=== PATIENT | male | born 1950 | race Caucasian/White ===

== ENCOUNTER 2017-06-15 14:09 | Emergency (ER) | payer OTHER, MEDICARE ==
[~2017-06-15] VITALS: Ht 188 cm; Wt 99.0 kg
[~2017-06-15 14:09] MED LIST: ACAR25TA2 PO; ASPI-529 PO; NIAC250C2 PO; OXYC-150 PO; ROTI1PAT10 TOP; SIMV40TA PO
[2017-06-15 14:47] LABS: COLOR,URINE Yellow (Yellow); GLUCOSE, URINE Negative (Neg); KETONES,URINE Negative (Neg); LEUKOCYTE ESTERASE ,URINE Small (Neg); NITRITES, URINE Negative (Neg); OCCULT BLOOD,URINE Moderate (Neg); PH,URINE 6.5 (4.8-8.0); PROTEIN,URINE Negative (Neg); UROBILINOGEN,URINE 0.2 E.U/dL (0.2-1.0)
[2017-06-15 14:48] LABS: UA COLLECTION TYPE VOIDED
[2017-06-15 14:49] LABS: CLARITY,URINE Cloudy (Clear)
[2017-06-15 14:56] LABS: BACTERIA,URINE FEW /HPF (Neg); MUCUS STRANDS FEW /LPF (Neg); SQUAMOUS EPITHELIAL CELL,UR FEW /LPF (FEW)
[2017-06-15 14:57] LABS: RBC,URINE 50-100 /HPF (0-2); WBC,URINE 0-4 /HPF (0-4)
[2017-06-15] MEDS ORDERED: NITR100C6 PO (15:18)
[2017-06-15 15:31] VITALS: BP 140/88
== END 2017-06-15 15:33 | disposition home or self-care (01) ==
LOC: ER 14:10
DX: R31.0 Gross hematuria (principal); E11.9 Type 2 diabetes mellitus without complications; G20 Parkinson's disease; Z98.890 Other specified postprocedural states; Z79.82 Long term (current) use of aspirin
CPT/HCPCS: 81001; 87088; 99284

== ENCOUNTER 2018-08-10 07:27 | Inpatient (IN) | payer OTHER, MEDICARE | END 2018-08-12 12:53 | disposition home or self-care (01) | LOC: PAS IN 07:27 → ORTHO 4S 14:30 | DX: M17.32 Unilateral post-traumatic osteoarthritis, left knee (principal) ==

== ENCOUNTER 2019-03-12 14:31 | Day surgery (SDC) | payer OTHER, MEDICARE ==
[2019-03-08 12:50] LABS: BASOPHILS % (AUTO) 0.5 % (0-1); EOSINOPHILS # (AUTO) 0.1 X10'3 (0-0.9); HEMATOCRIT 47.1 % (42.0-52.0); HEMOGLOBIN 15.9 g/dl (14.0-17.9); LYMPHOCYTES # (AUTO) 1.7 X10'3 (1.1-4.8); LYMPHOCYTES % (AUTO) 35.3 % (21-51); MEAN CORPUSCULAR HEMOGLOBIN 32.6 PG (27.0-31.0); MEAN CORPUSCULAR HGB CONC 33.7 g/dL (33.0-36.5); MEAN CORPUSCULAR VOLUME 96.7 FL (78-98); MEAN PLATELET VOLUME 7.3 FL (7.4-10.4); MONOCYTES # (AUTO) 0.4 X10'3 (0-0.9); MONOCYTES % (AUTO) 9.1 % (2-12); NEUTROPHILS # (AUTO) 2.5 X10'3 (1.8-7.7); NEUTROPHILS % (AUTO) 52.1 % (42-75); PLATELET COUNT 210 X10'3 (140-440); RED BLOOD COUNT 4.87 X10'6 (4.70-6.10); RED CELL DISTRIBUTION WIDTH 14.3 % (11.5-14.5); WHITE BLOOD COUNT 4.8 X10'3 (4.5-11.0)
[2019-03-08 12:58] LABS: ANION GAP 9 (8-16); BLOOD UREA NITROGEN 11 MG/DL (7-18); BUN/CREATININE RATIO 11.3 (5.4-32.0); CALCIUM 9.2 MG/DL (8.5-10.1); CHLORIDE 104 MMOL/L (99-107); CREATININE 0.97 MG/DL (0.60-1.10); GLUCOSE 115 MG/DL (70-104); POTASSIUM 3.7 MMOL/L (3.5-5.1); SODIUM 140 MMOL/L (135-145); TOTAL CARBON DIOXIDE 26.6 MMOL/L (24-32); eGFR 77 ML/MIN
[2019-03-08 13:00] LABS: PARTIAL THROMBOPLASTIN TIME 26 SECONDS (22-32)
[2019-03-12] VITALS (8 sets, daily range): BP systolic 129–137; BP diastolic 77–91
[~2019-03-12] VITALS: Ht 188 cm; Wt 106.1 kg
[~2019-03-12 14:31] MED LIST changes: -ASPI-529 PO; +CARB1TAB23 PO; +DIAZ5TAB4 PO; -OXYC-150 PO; +RASA1TAB4 PO; +TROS20TA4 PO
[2019-03-12] MEDS ORDERED: LORazepam 0.5 MG tablet PO PRN (15:20)
[2019-03-12] MEDS ORDERED: normal saline 1,000 ML IV SCH (15:20)
[2019-03-12] MEDS ORDERED: LIDOcaine/PRILOcaine 5gm cream TP ONE (15:20)
[2019-03-12] MEDS ORDERED: diphenhydrAMINE 25mg capsule PO PRN (15:20)
[2019-03-12] MEDS ORDERED: TURM1CAP PO (15:55)
[2019-03-12] MEDS ORDERED: ASPI-611 PO (15:55)
[2019-03-12] MEDS ORDERED: heparin 1,000unit/ml 10ml vial 10 ML ONE (16:26)
[2019-03-12] MEDS ORDERED: nitroGLYCERIN-Tridil 50MG/D5W 250 ML IV ONE (16:26)
[2019-03-12] MEDS ORDERED: fentaNYL/PF 50MCG/1 ML 2ML syringe ONE (16:26)
[2019-03-12] MEDS ORDERED: LIDOcaine 1% (10mg/ml)w/preservative injection 20ml MDV ONE (16:26)
[2019-03-12] MEDS ORDERED: verapamil 2.5 mg/ml inj IV ONE (16:26)
[2019-03-12] MEDS ORDERED: midazolam 2 mg/2 ml injection ONE (16:26)
[2019-03-12] MEDS ORDERED: iohexol 350MG/ML 100ml bottle IV ONE (16:27)
[2019-03-12] MEDS ORDERED: normal saline 1000ml 1,000 ML IV SCH (17:40)
[2019-03-12] MEDS ORDERED: ondansetron/PF 4mg/2ml inj IV PRN (17:40)
[2019-03-12] MEDS ORDERED: proCHLORperazine 10 MG/2 ml inj IV PRN (17:40)
[2019-03-12] MEDS ORDERED: OXAZEpam 15mg capsule PO PRN (17:40)
== END 2019-03-12 19:50 | disposition home or self-care (01) ==
LOC: SSTAY O 14:31
PROVIDERS: ATTEND Internal Medicine Interventional Cardiology
DX: R94.39 Abnormal result of other cardiovascular function study (principal); I25.10 Atherosclerotic heart disease of native coronary artery without angina pectoris; E11.9 Type 2 diabetes mellitus without complications; Z79.01 Long term (current) use of anticoagulants; Z96.652 Presence of left artificial knee joint; Z96.611 Presence of right artificial shoulder joint; Z90.5 Acquired absence of kidney; Z79.82 Long term (current) use of aspirin; Z79.899 Other long term (current) drug therapy
CPT/HCPCS: 36415; 80048; 82948; 85025; 85610; 85730; 93458; 99152; C1769; C1894; J1644; J2001; J2250; J3010; J7030; Q0163; Q9967; 93005; A4620; A5120; A6258; J3490

== ENCOUNTER 2019-03-26 13:24 | Inpatient (IN) | payer OTHER, MEDICARE ==
[~2019-03-26] VITALS: Ht 188 cm; Wt 106.0 kg
[2019-03-26] VITALS (15 sets, daily range): BP systolic 79–146; BP diastolic 48–90
[~2019-03-26 13:24] MED LIST changes: +ASPI-611 PO; +TURM1CAP PO
[2019-03-26] MEDS ORDERED: cefazolin/dext.iso 2gm/100ml 100 ML IV ONE ×2 (13:57→14:06)
[2019-03-26] MEDS ORDERED: famotidine 20mg tablet PO ONE (13:57)
[2019-03-26] MEDS ORDERED: ringers solution, lacted 1,000 ML IV SCH ×2 (13:57→17:36)
[2019-03-26] MEDS ORDERED: vancomycin inj 1,500 MG in normal saline 300ml IV soln IV ONE (13:58)
[2019-03-26] MEDS ORDERED: tranexamic acid inj. 1,100 MG in normal saline 100ml IV soln 100 ML IV ONE ×2 (14:30→15:30)
[2019-03-26] MEDS ORDERED: mupirocin 2% nasal ointment 1gm UD NS ONE (14:48)
[2019-03-26 15:01] LABS: BASOPHILS % (AUTO) 0.3 % (0-1); EOSINOPHILS # (AUTO) 0.1 X10'3 (0-0.9); LYMPHOCYTES # (AUTO) 1.5 X10'3 (1.1-4.8); LYMPHOCYTES % (AUTO) 27.1 % (21-51); MEAN CORPUSCULAR HEMOGLOBIN 32.9 PG (27.0-31.0); MEAN CORPUSCULAR HGB CONC 34.1 g/dL (33.0-36.5); MEAN CORPUSCULAR VOLUME 96.6 FL (78-98); MEAN PLATELET VOLUME 7.7 FL (7.4-10.4); MONOCYTES # (AUTO) 0.5 X10'3 (0-0.9); MONOCYTES % (AUTO) 9.3 % (2-12); NEUTROPHILS # (AUTO) 3.3 X10'3 (1.8-7.7); NEUTROPHILS % (AUTO) 61.3 % (42-75); PRE OP HEMATOCRIT 48.5 % (42.0-52.0); PRE OP HEMOGLOBIN 16.5 g/dL (14.0-17.9); PRE OP PLATELET COUNT 194 X10'3 (140-440); RED BLOOD COUNT 5.03 X10'6 (4.70-6.10); RED CELL DISTRIBUTION WIDTH 14.2 % (11.5-14.5)
[2019-03-26 15:13] LABS: ALBUMIN 4.4 G/DL (3.4-5.0); ALBUMIN/GLOBULIN RATIO 1.3 (1.1-1.5); ALKALINE PHOSPHATASE 107 IU/L (46-116); BLOOD UREA NITROGEN 16 MG/DL (7-18); BUN/CREATININE RATIO 17.2 (5.4-32.0); CALCIUM 9.7 MG/DL (8.5-10.1); CHLORIDE 102 MMOL/L (99-107); CREATININE 0.93 MG/DL (0.60-1.10); PRE OP ALT 25 U/L (30-65); PRE OP ANION GAP 9 (8-16); PRE OP AST 36 U/L (10-37); PRE OP BILIRUB, TOTAL 0.8 MG/DL (0.0-1.0); PRE OP GLUCOSE 87 MG/DL (70-104); PRE OP SODIUM 139 MMOL/L (135-145); TOTAL CARBON DIOXIDE 27.7 MMOL/L (24-32); TOTAL PROTEIN 7.9 G/DL (6.4-8.2); eGFR 81 ML/MIN
[2019-03-26 15:15] LABS: PRE OP POTASSIUM 4.1 MMOL/L (3.4-5.1)
[2019-03-26] MEDS ORDERED: tetracaine 1% (10mg/ml) pres. free inj. ONE (15:23)
[2019-03-26 15:24] LABS: HEMOGLOBIN A1C 5.7 % (4.5-6.2)
[2019-03-26] MEDS ORDERED: fentaNYL/PF 50MCG/1 ML 2ML syringe ONE (16:32)
[2019-03-26] MEDS ORDERED: MIDAZolam 1mg/ml 10ml vial ONE ×2 (16:32→18:12)
[2019-03-26] MEDS ORDERED: ketorolac trometh. 30mg/ml inj. ONE (17:11)
[2019-03-26] MEDS ORDERED: ROPIVAcaine 0.5% (5mg/ml) 30ml vial ONE ×2 (17:11→18:13)
[2019-03-26] MEDS ORDERED: propofol inj 20 ML IV ONE ×3 (17:11→19:35)
[2019-03-26] MEDS ORDERED: LIDOcaine 2% (20mg/ml) 5ml vial ONE (17:12)
[2019-03-26] MEDS ORDERED: hydrALAZINE 20mg/ml inj. IV PRN (17:40)
[2019-03-26] MEDS ORDERED: labetalol 20mg/4ml (5mg/ml) syringe IV PRN (17:40)
[2019-03-26] MEDS ORDERED: ondansetron/PF 4mg/2ml inj IV PRN ×3 (17:40→20:20)
[2019-03-26] MEDS ORDERED: fentaNYL/PF 50MCG/1 ML 2ML syringe IV PRN ×2 (17:40)
[2019-03-26] MEDS ORDERED: morphine 4 MG/ML inj SYRINge IV PRN ×2 (17:40)
[2019-03-26] MEDS ORDERED: diphenhydrAMINE 50 mg/ml inj IV PRN (18:00)
[2019-03-26 19:13] LABS: APPEARANCE,SYNOVIAL FLUID BLOODY; COLOR,SYNOVIAL FLUID RED; SYN RBC 110000 /CU MM (0); SYN WBC 94 /CU MM (0-200)
[2019-03-26 19:20] LABS: LYMPHOCYTES,SYNOVIAL FLUID 40 % (0-75); MONOCYTES,SYNOVIAL FLUID 32 % (0-0); NEUTROPHILS,SYNOVIAL FLUID 28 % (0-25)
[2019-03-26] MEDS ORDERED: labetalol 20mg/4ml (5mg/ml) syringe IV ONE (19:51)
[2019-03-26] MEDS ORDERED: diazepam 5mg tablet PO PRN (20:20)
[2019-03-26] MEDS ORDERED: magnesium hydroxide 30ml (MOM) UD suspension PO PRN (20:20)
[2019-03-26] MEDS ORDERED: oxyCODONE IR 5mg (immed. release) tablet PO PRN (20:20)
[2019-03-26] MEDS ORDERED: acetaminophen 325mg tablet PO PRN (20:20)
[2019-03-26] MEDS ORDERED: diphenhydrAMINE 25mg capsule PO PRN ×2 (20:20)
[2019-03-26] MEDS ORDERED: bisacodyl 10mg suppository rectal RC PRN (20:20)
[2019-03-26] MEDS ORDERED: HYDROmorphone inj. 0.5 MG/0.5 ML DISP.SYRIN IV PRN (20:20)
[2019-03-26] MEDS ORDERED: hydrALAZINE 20mg/ml inj. IV ONE (20:24)
--- NOTE | 2019-03-26 20:55 | NUR ---
ADMITTED TO PACU FROM OR ACCOMPANIED BY ANESTHESIA. INTIAL PHYSICAL ASSESSMENT DONE AND RECORDED. REPORT RECEIVED FROM ANESTHESIA.
[2019-03-26] MEDS: atorvastatin 20mg tablet PO SCH (21:00)
[2019-03-26] MEDS: sennosides 8.6mg tablet PO SCH (21:00)
[2019-03-26] MEDS ORDERED: niacin 500mg timed-release capsule PO SCH (21:00)
[2019-03-26] MEDS: ROPIVAcaine 0.2%/PF PUMP/bolus 550 ML ADDCANAL SCH (21:29)
--- NOTE | 2019-03-26 22:00 | NUR ---
PACU DISCHARGE CRITERIA MET, REPORT GIVEN TO FLOOR. DENIES PAIN OR DISCOMFORT, TRANSFERRED TO ROOM IN STABLE GOOD CONDITION.
[2019-03-26] MEDS ORDERED: tranexamic acid inj. 1,000 MG in normal saline 100ml IV soln 100 ML IV ONE (23:00)
[2019-03-26] MEDS: potassium cl 20mEq in 1/2 NS 1,000 ML IV SCH (23:15)
[2019-03-26] MEDS: ceFAZolin 1GM/D5W- ADD-VANTAGE 50 ML IV SCH (23:17)
[2019-03-27] VITALS (7 sets, daily range): BP systolic 79–117; BP diastolic 49–65
[2019-03-27] MEDS: acetaminophen 325mg tablet PO SCH ×4 (02:00→20:15)
--- NOTE | 2019-03-27 02:06 | NUR ---
PT IS VERY GROGGY AND ASLEEP, O2 2L/NC FOR CONTINUOUS PULSE OX, SATS 97%, BP 97/54, HR 66. NO PAIN AT THIS TIME. PT UNABLE TO STAY AWAKE TO PARTICIPATE IN PHYS ASSESS.
[2019-03-27] MEDS: potassium cl 20mEq in 1/2 NS 1,000 ML IV SCH ×3 (04:18→20:18)
[2019-03-27] MEDS: carbidoba-levodopa 25-100mg tablet PO SCH ×3 (05:56→17:43)
--- NOTE | 2019-03-27 06:05 | NUR ---
Patient in room ORTHO 4020. I have received report from SELINA SANCHEZ and had the opportunity to ask questions and assume patient care.
--- NOTE | 2019-03-27 06:17 | NUR ---
REPORT GIVEN TO LAURA HOLLIS.
[2019-03-27 06:20] LABS: BASOPHILS % (AUTO) 0.1 % (0-1); EOSINOPHILS # (AUTO) 0.1 X10'3 (0-0.9); EOSINOPHILS % (AUTO) 0.9 % (0-6); HEMATOCRIT 38.2 % (42.0-52.0); HEMOGLOBIN 13.1 g/dl (14.0-17.9); LYMPHOCYTES # (AUTO) 1.1 X10'3 (1.1-4.8); LYMPHOCYTES % (AUTO) 13.5 % (21-51); MEAN CORPUSCULAR HEMOGLOBIN 32.4 PG (27.0-31.0); MEAN CORPUSCULAR HGB CONC 34.2 g/dL (33.0-36.5); MEAN CORPUSCULAR VOLUME 94.6 FL (78-98); MEAN PLATELET VOLUME 7.4 FL (7.4-10.4); MONOCYTES # (AUTO) 0.6 X10'3 (0-0.9); MONOCYTES % (AUTO) 7.9 % (2-12); NEUTROPHILS # (AUTO) 6.1 X10'3 (1.8-7.7); NEUTROPHILS % (AUTO) 77.6 % (42-75); PLATELET COUNT 160 X10'3 (140-440); RED BLOOD COUNT 4.04 X10'6 (4.70-6.10); WHITE BLOOD COUNT 7.9 X10'3 (4.5-11.0)
[2019-03-27 06:50] LABS: ANION GAP 10 (8-16); CHLORIDE 103 MMOL/L (99-107); SODIUM 138 MMOL/L (135-145); TOTAL CARBON DIOXIDE 24.9 MMOL/L (24-32)
[2019-03-27] MEDS: aspirin 325mg tablet PO SCH (07:41)
[2019-03-27] MEDS: RASAGILINE MESYLATE PO SCH (07:41)
[2019-03-27] MEDS: ROTIGOTINE 6 MG TOP SCH (07:41)
[2019-03-27] MEDS: ceFAZolin 1GM/D5W- ADD-VANTAGE 50 ML IV SCH (07:42)
--- NOTE | 2019-03-27 07:55 | NUR ---
INCREASED ON-Q 2ML/HR
[2019-03-27] MEDS ORDERED: vancomycin/NS 1 GM ADD-VANTAGE 250 ML IV SCH (08:00)
[2019-03-27] MEDS ORDERED: aspirin 81mg tablet.DR PO SCH (08:00)
[2019-03-27] MEDS: acarbose 50mg tablet PO SCH ×3 (08:59→17:43)
[2019-03-27] MEDS ORDERED: NIAC100045 PO (09:11)
--- NOTE | 2019-03-27 11:17 | NUR ---
Student documentation: I have reviewed all interventions, assessments performed and [facility] Medication Administration: For this medication-pass time frame, all medication were reviewed, dispensed, administered and documented per hospital policy [facility] [place]
[2019-03-27] MEDS: TROSPIUM CHLORIDE PO SCH (15:30)
[2019-03-27] MEDS: oxyCODONE IR 5mg (immed. release) tablet PO PRN ×2 (16:52→20:26)
[2019-03-27] MEDS ORDERED: ceFAZolin 1GM/D5W- ADD-VANTAGE 50 ML IV ONE (18:00)
--- NOTE | 2019-03-27 18:05 | NUR ---
Problems reprioritized. Patient report given, questions answered & plan of care reviewed with SELINA SANCHEZ.
--- NOTE | 2019-03-27 18:16 | NUR ---
ON Q TO 14ML/HR
--- NOTE | 2019-03-27 18:32 | NUR ---
REPORT REC'D FROM LAURA HOLLIS.
[2019-03-27] MEDS: ROPIVAcaine 0.2%/PF PUMP/bolus 550 ML ADDCANAL SCH (20:12)
[2019-03-27] MEDS: ROPIVAcaine 0.2% (10 MG/5 ML) BOLUS INJECTION ADDCANAL PRN (20:13)
[2019-03-27] MEDS: sennosides 8.6mg tablet PO SCH (20:14)
[2019-03-27] MEDS: atorvastatin 20mg tablet PO SCH (20:15)
[2019-03-27] MEDS: niacin 500mg ER (Niaspan) tablet PO SCH (20:18)
[2019-03-27] MEDS: HYDROmorphone 1 mg/ml syringe IV PRN (22:11)
[2019-03-28] MEDS: oxyCODONE IR 5mg (immed. release) tablet PO PRN ×4 (02:05→15:11)
[2019-03-28] MEDS: acetaminophen 325mg tablet PO SCH ×4 (02:05→20:08)
[2019-03-28] MEDS: ROPIVAcaine 0.2% (10 MG/5 ML) BOLUS INJECTION ADDCANAL PRN ×2 (02:09→07:15)
--- NOTE | 2019-03-28 02:10 | NUR ---
pt is using his self administer On-Que pump [id number] per education. New OnQue "ball" is ordered. will monitor for need to replace.
[2019-03-28] MEDS: potassium cl 20mEq in 1/2 NS 1,000 ML IV SCH (04:18)
[2019-03-28] MEDS: carbidoba-levodopa 25-100mg tablet PO SCH ×3 (05:29→17:48)
--- NOTE | 2019-03-28 06:10 | NUR ---
Patient in room ORTHO 4020. I have received report from SELINA SANCHEZ and had the opportunity to ask questions and assume patient care.
--- NOTE | 2019-03-28 06:16 | NUR ---
REPORT GIVEN TO LAURA HOLLIS.
[2019-03-28 06:53] LABS: BASOPHILS % (AUTO) 0.2 % (0-1); EOSINOPHILS # (AUTO) 0.1 X10'3 (0-0.9); EOSINOPHILS % (AUTO) 1.5 % (0-6); HEMATOCRIT 35.3 % (42.0-52.0); HEMOGLOBIN 12.1 g/dl (14.0-17.9); LYMPHOCYTES # (AUTO) 1.2 X10'3 (1.1-4.8); LYMPHOCYTES % (AUTO) 16.7 % (21-51); MEAN CORPUSCULAR HEMOGLOBIN 32.8 PG (27.0-31.0); MEAN CORPUSCULAR HGB CONC 34.3 g/dL (33.0-36.5); MEAN CORPUSCULAR VOLUME 95.6 FL (78-98); MEAN PLATELET VOLUME 7.6 FL (7.4-10.4); MONOCYTES # (AUTO) 0.7 X10'3 (0-0.9); MONOCYTES % (AUTO) 10.1 % (2-12); NEUTROPHILS # (AUTO) 5.1 X10'3 (1.8-7.7); NEUTROPHILS % (AUTO) 71.5 % (42-75); PLATELET COUNT 140 X10'3 (140-440); RED CELL DISTRIBUTION WIDTH 13.8 % (11.5-14.5); WHITE BLOOD COUNT 7.1 X10'3 (4.5-11.0)
[2019-03-28] MEDS: RASAGILINE MESYLATE PO SCH (07:16)
[2019-03-28] MEDS: acarbose 50mg tablet PO SCH ×3 (07:17→17:48)
[2019-03-28] MEDS: ROTIGOTINE 6 MG TOP SCH (07:19)
[2019-03-28] MEDS: aspirin 325mg tablet PO SCH (07:19)
[2019-03-28] MEDS ORDERED: niacin 500mg timed-release capsule PO SCH (08:00)
[2019-03-28 10:00] VITALS: BP 100/69
[2019-03-28] MEDS ORDERED: ASPI-1 PO (12:18)
[2019-03-28] MEDS ORDERED: cpm (12:18)
[2019-03-28] MEDS: TROSPIUM CHLORIDE PO SCH (15:10)
[2019-03-28] MEDS: HYDROmorphone 1 mg/ml syringe IV PRN (17:01)
--- NOTE | 2019-03-28 18:00 | NUR ---
Student documentation: I have reviewed and agree with all interventions, assessments performed and documented by TAMERA HERNANDEZ. Student Medication Administration: For this medication-pass time frame, all medication were reviewed, dispensed, administered and documented per hospital policy by TAMERA HERNANDEZ.
--- NOTE | 2019-03-28 18:37 | NUR ---
REPORT GIVEN TO LAURA MACIAS
--- NOTE | 2019-03-28 18:40 | NUR ---
Patient in room ORTHO 4020. I have received report from TELMA SANCHEZ and had the opportunity to ask questions and assume patient care.
[2019-03-28 19:00] VITALS: BP 130/73
[2019-03-28] MEDS: atorvastatin 20mg tablet PO SCH (20:09)
[2019-03-28] MEDS: niacin 500mg ER (Niaspan) tablet PO SCH (20:09)
[2019-03-28] MEDS: sennosides 8.6mg tablet PO SCH (20:09)
[2019-03-28] MEDS ORDERED: acetaminophen 325mg tablet PO PRN (20:20)
[2019-03-28 23:00] VITALS: BP 108/59
[2019-03-29] MEDS: carbidoba-levodopa 25-100mg tablet PO SCH ×3 (05:33→12:12)
[2019-03-29] MEDS: ROPIVAcaine 0.2% (10 MG/5 ML) BOLUS INJECTION ADDCANAL PRN (05:37)
[2019-03-29] MEDS: oxyCODONE IR 5mg (immed. release) tablet PO PRN ×3 (05:58→14:07)
[2019-03-29 06:09] LABS: BASOPHILS % (AUTO) 0.2 % (0-1); EOSINOPHILS # (AUTO) 0.1 X10'3 (0-0.9); EOSINOPHILS % (AUTO) 1.3 % (0-6); HEMATOCRIT 34.3 % (42.0-52.0); HEMOGLOBIN 11.8 g/dl (14.0-17.9); LYMPHOCYTES # (AUTO) 1.2 X10'3 (1.1-4.8); LYMPHOCYTES % (AUTO) 13.3 % (21-51); MEAN CORPUSCULAR HEMOGLOBIN 32.8 PG (27.0-31.0); MEAN CORPUSCULAR HGB CONC 34.3 g/dL (33.0-36.5); MEAN CORPUSCULAR VOLUME 95.7 FL (78-98); MEAN PLATELET VOLUME 7.4 FL (7.4-10.4); MONOCYTES # (AUTO) 0.9 X10'3 (0-0.9); MONOCYTES % (AUTO) 10.2 % (2-12); PLATELET COUNT 152 X10'3 (140-440); RED BLOOD COUNT 3.58 X10'6 (4.70-6.10); RED CELL DISTRIBUTION WIDTH 13.8 % (11.5-14.5); WHITE BLOOD COUNT 9.3 X10'3 (4.5-11.0)
[2019-03-29 06:10] VITALS: BP 134/75
--- NOTE | 2019-03-29 06:13 | NUR ---
Problems reprioritized. Patient report given, questions answered & plan of care reviewed with JOE SANCHEZ.
--- NOTE | 2019-03-29 06:22 | NUR ---
Patient in room ORTHO 4020. I have received report from Missy SANCHEZ and had the opportunity to ask questions and assume patient care.
[2019-03-29] MEDS: HYDROmorphone 1 mg/ml syringe IV PRN (08:13)
[2019-03-29] MEDS: ROTIGOTINE 6 MG TOP SCH (08:21)
[2019-03-29] MEDS: aspirin 325mg tablet PO SCH (08:21)
[2019-03-29] MEDS: RASAGILINE MESYLATE PO SCH (08:21)
[2019-03-29] MEDS: acarbose 50mg tablet PO SCH ×2 (08:21→12:12)
[2019-03-29] MEDS: TROSPIUM CHLORIDE PO SCH (08:22)
[2019-03-29 10:00] VITALS: BP 109/70
[2019-03-29] MEDS: ROPIVAcaine 0.2%/PF PUMP/bolus 550 ML ADDCANAL SCH (11:26)
--- NOTE | 2019-03-29 14:20 | NUR ---
Patient is discharged at this time. I taught patient and all discharge instructions regarding dressing care and showering. Patient had his meds picked up from out pharmacy to send home with him.
== END 2019-03-29 14:15 | disposition home health service (06) | DRG 467 ==
LOC: PAS IN 13:24 → EDSTATUS 16:15 → ORTHO 4S 21:59
PROVIDERS: ADMIT Orthopaedic Surgery; ATTEND Orthopaedic Surgery
PROC: 0SRD0J9 Replacement of Left Knee Joint with Synthetic Substitute, Cemented, Open Approach (ICD-10-PCS; 2019-03-26)
PROC: 3E0T3BZ Introduction of Anesthetic Agent into Peripheral Nerves and Plexi, Percutaneous Approach (ICD-10-PCS; 2019-03-26)
PROC: 0SPD0JZ Removal of Synthetic Substitute from Left Knee Joint, Open Approach (ICD-10-PCS; principal; 2019-03-26 16:29)
DX: T84.82XA Fibrosis due to internal orthopedic prosthetic devices, implants and grafts, initial encounter (principal); D62 Acute posthemorrhagic anemia; Z94.0 Kidney transplant status; Z96.652 Presence of left artificial knee joint; E11.9 Type 2 diabetes mellitus without complications; E78.5 Hyperlipidemia, unspecified; E66.9 Obesity, unspecified; G89.29 Other chronic pain; G20 Parkinson's disease; L90.5 Scar conditions and fibrosis of skin; Y79.2 Prosthetic and other implants, materials and accessory orthopedic devices associated with adverse incidents; Y92.89 Other specified places as the place of occurrence of the external cause; Z68.30 Body mass index [BMI] 30.0-30.9, adult; Z79.899 Other long term (current) drug therapy
CPT/HCPCS: Z7506; Z7508; 36415; 80051; 80053; 82948; 83036; 85025; 87070; 87075; 87081; 87102; 89051; 97110; 97112; 97116; 97161; 97530; A4215; A6454; A7000; A9272; C1713; C1758; C1776; G0378; J0360; J0690; J1170; J1885; J2001; J2250; J2704; J2795; J3010; J3370; J3480; J3490; J7120